=== PATIENT | female | born 2000 | race Caucasian/White ===

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

== ENCOUNTER 2023-12-16 10:22 | Emergency (ER) | payer MEDICAID, OTHER ==
[~2023-12-16] VITALS: Ht 162.6 cm; Wt 127.6 kg
[~2023-12-16 10:22] MED LIST: ACET-9800 PO; FERR325E14 PO; LEVO750T2 PO
[2023-12-16 10:35] VITALS: BP 114/58; PULSE 68; RESP 14; TEMP 98.1; O2SAT 100
[2023-12-16] MEDS ORDERED: IBUP-2213 PO (12:44)
[2023-12-16] MEDS ORDERED: ACET-8905 PO (12:44)
[2023-12-16] MEDS: KETOROLAC 60 MG/2 ML VIAL IM ONE (12:49)
[2023-12-16 12:54] VITALS: BP 120/50; PULSE 60; RESP 15; TEMP 98.1; O2SAT 100
== END 2023-12-16 12:53 | disposition home or self-care (01) ==
LOC: MED 10:22
DX: S92.411A Displaced fracture of proximal phalanx of right great toe, initial encounter for closed fracture (principal); Z79.899 Other long term (current) drug therapy; W18.39XA Other fall on same level, initial encounter; Y92.89 Other specified places as the place of occurrence of the external cause; Y93.89 Activity, other specified; Y99.8 Other external cause status
CPT/HCPCS: 73660; 81025; 96372; 99283; J1885